=== PATIENT | female | born 1995 | race African-American/Black ===

== ENCOUNTER 2017-03-14 17:25 | Emergency (ER) | payer OTHER ==
[~2017-03-14] VITALS: Ht 167.6 cm; Wt 129.6 kg
[~2017-03-14 17:25] MED LIST: NOCURR
[2017-03-14] MEDS ORDERED: PredniSONE 20 MG TABLET PO ONE (21:45)
[2017-03-14] MEDS ORDERED: PENICILLIN G BENZATHINE LA 1,200,000 UNITS/2 ML SYRINGE IM ONE (21:45)
[2017-03-14 22:37] VITALS: BP 128/88
== END 2017-03-14 22:39 | disposition home or self-care (01) ==
LOC: EMS 17:29
DX: J02.0 Streptococcal pharyngitis (principal); H92.09 Otalgia, unspecified ear
CPT/HCPCS: 96372; 99283; J0561; J7512